=== PATIENT | female | born 1990 | race Caucasian/White ===

== ENCOUNTER 2020-09-06 10:30 | Outpatient (CLI) | payer MEDICAID, SELFPAY ==
[2020-09-06 10:40] VITALS: BP 132/74; PULSE 96
[2020-09-06 10:42] VITALS: BP 123/63; PULSE 86; TEMP 36.1
[2020-09-06 10:46] VITALS: RESP 18
[2020-09-06 10:47] VITALS: BMI 35.5
[2020-09-06 11:02] VITALS: BP 113/69; PULSE 102
[2020-09-06 11:18] VITALS: BP 120/71; PULSE 96
== END 2020-09-06 11:22 | disposition home or self-care (01) ==
LOC: OPOB 10:34 → OBGYN 10:35
PROVIDERS: Visit Provider Family Medicine
DX: O36.8190 Decreased fetal movements, unspecified trimester, not applicable or unspecified (principal); Z3A.00 Weeks of gestation of pregnancy not specified
CPT/HCPCS: 59025; 99211

== ENCOUNTER 2020-10-12 13:40 | Inpatient (IN) | payer MEDICAID, SELFPAY ==
[2020-10-12] VITALS (98 sets, daily range): BP systolic 86–157; BP diastolic 45–86; PULSE 69–130; RESP 16–18; TEMP 36.1–36.8; O2SAT 100; BMI 35.9
[2020-10-12] MEDS: lactated ringers 1,000 ML 999 ML IV ×3 (13:30→16:30)
[2020-10-12 14:35] LABS: Basophils # 0.1 10^3/uL (0.0-0.1); Basophils % 0.4 %; Eosinophils % 0.1 %; Hematocrit 36.5 % (37.0-47.0); Lymphocytes # 2.2 10^3/uL (0.8-4.8); Lymphocytes % 16.3 %; Mean Corpuscular HGB Conc 32.9 g/dL (30.0-36.0); Mean Corpuscular Hemoglobin 29.5 pg (28.0-34.0); Mean Corpuscular Volume 89.7 fL (81-99); Mean Platelet Volume 9.7 fL (7.4-10.4); Monocytes # 0.8 10^3/uL (0.2-0.9); Monocytes % 5.9 %; Neutrophils # 10.26 10^3/uL (1.8-7.7); Neutrophils % 75.6 %; Nucleated Red Blood Cells % 0 %; Platelet Count 242 10^3/cmm (130-400); Red Blood Count 4.07 10^6/uL (4.1-5.3); Red Cell Distribution Width 14.1 % (12.1-15.1); White Blood Count 13.6 10^3/uL (4.0-10.0)
--- NOTE | 2020-10-12 15:46 | P.ANESASSM_ITS ---
Pre-Anesthetic Assessment Pre-Anesthetic Assessment: Height/Weight: Height 1.68 m Weight 101.151 kg Temp Pulse Resp BP Pulse Ox 97.0 F L 82 16 117/59 100 10/12/20 10:42 10/12/20 15:41 10/12/20 10:42 10/12/20 15:41 10/12/20 15:15 Preop Diagnosis: IUP Proposed Procedure: epidural Familial anesthetic complications: none Was Beta Rojas taken within 24 hours: N/A Was Clonidine taken within 24 hours: N/A Last intake: ice chips Social: Social History: No alcohol and No tobacco Exam: Pre-Anes Outpt Exam: alert, oriented x 3, clear to auscultation bilaterally and regular rate & rhythm Airway: Cervical ROM: WNL MP: 3 Dentition: Full Metabolic: Metabolic: Morbid obesity Anesthetic Plan: ASA status: 2 Anesthesia: Regional (specify below) Risk of > 500 ml blood loss (7ml/kg in children): No Meds/Allergies Current Medications: Current Medications Generic Name Dose Route Start Last Admin Trade Name Freq PRN Reason Stop Dose Admin Lactated Ringer's 1,000 mls @ 999 m ls/hr 10/12/20 13:36 10/12/20 14:32 Lactated Ringers IV 999 mls/hr .Q1H1M PRN Administration See label comment s PFSH Anesthesia Female Reproductive History: : 2 Data Anesthesia CBC & Chem 7: 10/12/20 14:23 Other Labs: Laboratory Results - last 48 hr 10/12/20 10/12/20 13:36 14:23 WBC Cancelled 13.6 H Corrected WBC Cancelled RBC Cancelled 4.07 L Hgb Cancelled 12.0 Hct Cancelled 36.5 L MCV Cancelled 89.7 MCH Cancelled 29.5 MCHC Cancelled 32.9 RDW Cancelled 14.1 Plt Count Cancelled 242 MPV Cancelled 9.7 Gran % Cancelled Neut % (Auto) Cancelled 75.6 Lymph % (Auto) Cancelled 16.3 Mcdonough % (Auto) Cancelled 5.9 Eos % (Auto) Cancelled 0.1 Baso % (Auto) Cancelled 0.4 Neut # (Auto) Cancelled 10.26 H Lymph # (Auto) Cancelled 2.2 Mcdonough # (Auto) Cancelled 0.8 Eos # (Auto) Cancelled 0.0 Baso # (Auto) Cancelled 0.1 Absolute Gran (auto) Cancelled Nucleated RBC % (auto) Cancelled 0 Nucleated RBCs # Cancelled 0.0 Cardiac Studies: No Data to Display
--- NOTE | 2020-10-12 15:46 | ANES.PROC ---
Anesthesia Procedures Procedure/Date: 10/12/20 Epidural: Time Out Performed: Yes Consents Signed: Procedure Consent, NPO Consent and No Consent Needed Consent: requested by attending/covering physician, from patient, risks and benefits reviewed and patient agrees to proceed Lumbar Level: L3-L4 Epidural position: sitting Epidural procedure: sterile prep of area, 1% lidocaine to numb the area, 18 g needle, negative for paresthesia passed, neg for paresthesia, test dose given, 1.5% xylocaine 1:200k epi (5 cc), 0.2% Ropivacaine bolus ml (5), placed PCEA, no systemic response, sterile dressing applied, L.U.D. no apparent complications and 0.2% Ropiavacaine @ mls/hr (13) Additional Comments: 3 attempts - FAN at 7.5 cm threaded to 13 cm. Patient experienced significant decrease in pain of contractions down to 2/10 from a 7/10 before epidural
[2020-10-12] MEDS: dextrose 5%-lactated ringers 1,000 ML 125 ML IV ×2 (16:30→21:40)
--- NOTE | 2020-10-12 17:09 | P.ANES_ITS ---
Anesthesia Procedures Procedure/Date: 10/12/20 epidural Procedure Narrative: patient admits to still being uncomfortable after first epidural attempt. patient was assessed and epidural removed for second attempt with blue tip intact. second epidural complete, bolus given, epidural pump initiated with TRAVELING CRANE OPERATOR education given, vitals taken during procedure using OBIX system and satisfactory throughout, patient admits to decrease pain, report of procedure to OB RN Epidural: Time Out Performed: Yes Consents Signed: Procedure Consent Consent: requested by attending/covering physician, from patient, risks and benefits reviewed and patient agrees to proceed Lumbar Level: L3-L4 Epidural position: sitting Epidural procedure: sterile prep of area, 1% lidocaine to numb the area (3 mL), 18 g needle, negative for paresthesia passed, neg for paresthesia, test dose given, 1.5% xylocaine 1:200k epi (5 mL), 0.2% Ropivacaine bolus ml (5 mL), placed PCEA, no systemic response, sterile dressing applied, L.U.D. no apparent complications and 0.2% Ropiavacaine @ mls/hr (13 mL/hr)
--- NOTE | 2020-10-12 17:23 | PC.NURSE ---
Epidural catheter removed by Carmen Sauceda CRNA at 1628 prior to placement of new epidural catheter.
[2020-10-12] MEDS: oxytocin 30 UNIT/500 ML BAG IV (19:15)
--- NOTE | 2020-10-12 22:26 | P.PCNOB_ITS ---
Delivery Note: Date of delivery: October 12, 2020 Pre-Delivery Course: She had routine care at [facility]. Her TATUM was 10/20/2020. She was blood type a positive antibody negative, rubella immune, hepatitis B nonreactive, hepatitis C nonreactive, HIV nonreactive, RPR nonreactive,. She passed her 1 hour glucose tolerance test. She was GBS negative. Delivery: This is a 30-year-old G2, P1 at 38 weeks 6 days gestation who presented to labor and delivery in active labor. She received an epidural for pain management the first 1 did not work very well and needed to be replaced with a second epidural. After the second epidural her labor stalled out at approximately 7 cm. She was then started on high-dose Pitocin. She had artificial rupture of membranes with clear fluid when she was complete complete and +1 station. Rupture of membranes was less than 15 minutes prior to delivery. She had a normal spontaneous vaginal delivery of a viable female weight 2770 g, 6 pounds 2 ounces, Apgars 10 and 10 over an intact perineum. The was suctioned at delivery and placed on the mother's chest. The cord was clamped and cut. The placenta was delivered grossly intact and normal to inspection. There were no lacerations. Mother and infant were doing well after delivery. Estimated blood loss 250 mL. A&P Assessment and plan (1) Normal spontaneous vaginal delivery: Routine care Status: Acute Coding Level of Care Code Acute Appraiser Auditor for Chg Fwd Diagnoses Normal spontaneous vaginal delivery O80
[2020-10-13] VITALS (18 sets, daily range): BP systolic 118–146; BP diastolic 55–85; PULSE 69–110; RESP 16–18; TEMP 36.2–36.9; O2SAT 98–99
[2020-10-13] MEDS: acetaminophen 325 mg Tablet 650 MG PO (02:22)
[2020-10-13] MEDS: ibuprofen 800 mg tablet PO ×3 (09:47→21:48)
[2020-10-13] MEDS: prenatal vitamin Capsule 1 CAP PO (09:47)
[2020-10-13 11:29] LABS: Hematocrit 34.9 % (37.0-47.0); Hemoglobin 11.5 g/dL (11.5-15.3); Mean Corpuscular Volume 91.1 fL (81-99); Mean Platelet Volume 9.7 fL (7.4-10.4); Platelet Count 225 10^3/cmm (130-400); Red Blood Count 3.83 10^6/uL (4.1-5.3); Red Cell Distribution Width 14.5 % (12.1-15.1); White Blood Count 12.8 10^3/uL (4.0-10.0)
--- NOTE | 2020-10-13 12:03 | PM.DCS ---
Discharge Providers Date of Admission: 10/12/20 13:40 Date of Discharge: October 13, 2020 Attending Provider at Admission: Mandi Nunez MD Attending Provider at Discharge: Mandi Nunez MD Diagnoses at Discharge Discharge Diagnosis (1) Normal spontaneous vaginal delivery: Status: Acute Reason for Visit Reason for Visit: Contractions Hospital Course Hospital Course This is a 30-year-old who presented to labor and delivery in active labor. She had a full-term normal spontaneous vaginal delivery of a viable female infant. Mother and infant did well after delivery. On day #1 she was doing well. She had no pain. Her vaginal bleeding was decreased and she was comfortable with discharge home. Physical Exam Const: COMMON NORMALS: no acute distress GENERAL APPEARANCE: cooperative and comfortable HENMT: COMMON NORMALS: normocephalic and atraumatic HEAD & SCALP: normocephalic and atraumatic Chest: COMMONS NORMALS: normal inspection of the chest Resp: COMMON NORMALS: normal respiratory effort and clear to auscultation bilaterally AUSCULTATION: clear to auscultation bilaterally GI: COMMON NORMALS: Soft to palpation (Fundus firm U- 2), non-tender and no masses PALPATION: Yes Soft to palpation (Fundus firm U- 2) Extremity: GENERAL: No calf tenderness and Yes edema Urinary Catheter Management^: Welch: Cath Placed During This Visit: yes, but has since been removed by the nurse Reason for Continuing Indwelling Catheter: Required Immobilization for Trauma or Surgery or Anesthesia Urinary Catheter Date of Insertion: 10/12/20 Urinary Catheter Time of Insertion: 16:00 Date Urinary Catheter Removed: 10/12/20 Time Urinary Catheter Discontinued: 22:04 Discharge Data Data Completed and Pending: Labs from last 24 hours 10/13/20 10/12/20 10/12/20 11:20 14:23 13:36 WBC 12.8 H 13.6 H Cancelled Corrected WBC Cancelled RBC 3.83 L 4.07 L Cancelled Hgb 11.5 12.0 Cancelled Hct 34.9 L 36.5 L Cancelled MCV 91.1 89.7 Cancelled MCH 30.0 29.5 Cancelled MCHC 33.0 32.9 Cancelled RDW 14.5 14.1 Cancelled Plt Count 225 242 Cancelled MPV 9.7 9.7 Cancelled Gran % Cancelled Neut % (Auto) 75.6 Cancelled Lymph % (Auto) 16.3 Cancelled Carlton % (Auto) 5.9 Cancelled Eos % (Auto) 0.1 Cancelled Baso % (Auto) 0.4 Cancelled Neut # (Auto) 10.26 H Cancelled Lymph # (Auto) 2.2 Cancelled Carlton # (Auto) 0.8 Cancelled Eos # (Auto) 0.0 Cancelled Baso # (Auto) 0.1 Cancelled Absolute Gran (aut o) Cancelled Nucleated RBC % (a uto) 0 Cancelled Nucleated RBCs # 0.0 Cancelled Vitals: Last Vital Signs Temp 98.0 F 10/13/20 08:50 Pulse 100 10/13/20 08:49 Resp 18 10/13/20 08:50 BP 118/71 10/13/20 08:49 Pulse Ox 98 10/13/20 08:50 Discharge Plan Discharge Patient Disposition: Home Condition: Stable Prescriptions: No Action No Known Home Medications RF: 0 Discharge Orders: Discharge Order (Routine); Ordered 10/13/20 Ordered By: Mandi Nunez Referrals: Mandi Nunez MD [Physician] - 1 month Discharge Diet: Usual diet Discharge Activity: Limit activity as instructed Patient Instructions: Opioid Safety Discharge Attestations Time Spent in Discharge Care*: less than 30 min Quality Metrics Clinical Quality Measures During this hospital stay, did patient experience: None Coding Level of Care Code Acute Chg FW DC note Diagnoses Normal spontaneous vaginal delivery O80
--- NOTE | 2020-10-13 13:39 | ANE.PACU2 ---
Inpatient post-anesthesia follow up: Airway intact: Yes Vital signs: Temperature 98.0 F Pulse Rate 85 Respiratory Rate 18 Blood Pressure 122/58 Pulse Oximetry 98 Oxygen Delivery Me thod Room Air Oxygen Flow Rate Fraction of Inspir ed Oxygen Hydration adequate: Yes Nausea and vomiting: No Pain level: 1 Additional Comments: no residual numbness/weaknses of legs, up and walking, urinating without cesar, no headaches, no s/s of infection at neuraxial site
== END 2020-10-13 23:42 | disposition home or self-care (01) | DRG 807 ==
LOC: OPOB 13:40 → OBGYN 13:40
PROVIDERS: Admitting Provider Family Medicine; Visit Provider Family Medicine
DX: O80 Encounter for full-term uncomplicated delivery (principal); Z37.0 Single live birth; Z3A.38 38 weeks gestation of pregnancy; Z88.2 Allergy status to sulfonamides
CPT/HCPCS: 36415; 51702; 59025; 59409; 85025; 85027; 96374; 98960; 99211; J2370; J2795